=== PATIENT | male | born 1955 | race Caucasian/White ===

== ENCOUNTER 2016-10-07 16:39 | Emergency (ER) | payer OTHER ==
[~2016-10-07] VITALS: Ht 172.7 cm; Wt 88.0 kg
[2016-10-07] MEDS ORDERED: METF500T4 PO (16:54)
[2016-10-07] MEDS ORDERED: SITA50TA3 PO (16:54)
[2016-10-07] MEDS ORDERED: GLIP10TA10 PO (16:54)
[2016-10-07 21:09] VITALS: BP 126/70
[2016-10-07] MEDS ORDERED: LIDOCAINE HCL 1% 20ML VIAL (Pyxis) INJ MC ONE (22:15)
[2016-10-07] MEDS ORDERED: TETANUS, DIPHTHERIA, PERTUSSIS VAC/PF 0.5ML (>7YR OLD) IM ONE (23:00)
== END 2016-10-07 23:18 | disposition home or self-care (01) ==
LOC: ER 21:39
DX: S61.012A Laceration without foreign body of left thumb without damage to nail, initial encounter (principal); E11.9 Type 2 diabetes mellitus without complications; W26.0XXA Contact with knife, initial encounter; Y93.89 Activity, other specified; Y92.018 Other place in single-family (private) house as the place of occurrence of the external cause
CPT/HCPCS: 12001; 90471; 90715; 99283; J3490; Z7610